=== PATIENT | female | born 1970 | race Caucasian/White ===

== ENCOUNTER 2021-03-20 21:36 | Emergency (ER) | payer OTHER ==
[~2021-03-20] VITALS: Ht 157.5 cm; Wt 108.9 kg
[~2021-03-20 21:36] MED LIST: LIDOCAINE VISC100 M1 MM
[2021-03-20 22:38] VITALS: BP 138/71
== END 2021-03-20 22:38 | disposition home or self-care (01) ==
LOC: M.ERS 21:36
DX: S60.222A Contusion of left hand, initial encounter (principal); F12.90 Cannabis use, unspecified, uncomplicated; W34.010A Accidental discharge of airgun, initial encounter; Y93.89 Activity, other specified; Y92.89 Other specified places as the place of occurrence of the external cause; Y99.8 Other external cause status